=== PATIENT | male | born 1970 | race Caucasian/White ===

== ENCOUNTER 2019-04-25 10:33 | Emergency (ER) | payer MEDICAID ==
[2019-04-25 11:04] VITALS: O2SAT 97
[2019-04-25] MEDS ORDERED: DILAUDID 2 MG INJECTION IM ONE (11:05)
[2019-04-25] MEDS ORDERED: DECADRON 10MG INJ. IM ONE (11:05)
[2019-04-25] MEDS ORDERED: Hydromorphone 1 mg/ml Ampule ONE ×2 (11:09→11:12)
[2019-04-25] MEDS ORDERED: DECADRON 10MG INJ. ONE (11:09)
--- NOTE | 2019-04-25 11:14 | ERPHSYRPT ---
- History of Present Illness Time Seen by Provider: 04/25/19 11:00 Source: patient Exam Limitations: no limitations Patient Subjective Stated Complaint: co right lower back for 3 days after standing on ladder for 3 days putting window in, pain shoots down leg.no difficultly with b/b/ Triage Nursing Assessment: pt walked in, alert, unalbe to lay in bed, restless, no bruising or abrasion noted Physician History: Patient has had increasing pain over the past three days of his usual low back pain. It is radiating down the posterior right leg just pain his knee. Timing/Duration: day(s) (3) Method of Injury: other (standing on a ladder putting windows in over the previous 3 days) Quality: dull, radiating, aching Back Pain Location: lumbar spine Back Pain Radiation: lower legs (only the posterior right lower leg) Severity of Pain-Max: severe Severity of Pain-Current: severe Modifying Factors: Improves With: movement (worsened), pain medication (some relief with Meloxicam and Aleve, but mininal relief), rest (standing upright helps, laying flat worsens) Associated Symptoms: lower back pain, No fever, No chills, No sweating, No urinary incontinence, No loss of bowel control, No constipation, No nausea, No vomiting, No problems urinating, No light-headedness, No dizziness, No numbness in legs/feet, No weakness, No sensory/motor loss, No tingling in legs/feet, No muscle spasms Previous symptoms: same symptoms as today, no recent treatment (no history of epidural injections) Allergies/Adverse Reactions: No Known Drug Allergies Allergy (Unverified 04/25/19 10:59) Home Medications: Carvedilol 12.5 mg [Coreg 12.5 mg] 12.5 mg DAILY 04/25/19 [History] Hx Influenza Vaccination/Date Given: No Hx Pneumococcal Vaccination/Date Given: No Immunizations Up to Date: Yes - Review of Systems Constitutional: No Fever, No Chills Eyes: No Symptoms, No Eye Pain, No Vision Changes Ears, Nose, & Throat: No Symptoms, No Throat Pain, No Throat Swelling, No Hoarse Respiratory: No Cough, No Dyspnea Cardiac: No Chest Pain, No Edema, No Syncope Abdominal/Gastrointestinal: No Abdominal Pain, No Nausea, No Vomiting, No Diarrhea, No Hematemesis, No Hematochezia, No Melena Genitourinary Symptoms: No Dysuria, No Hematuria, No Flank Pain Musculoskeletal: Back Pain, No Arthralgias, No Neck Pain Skin: No Rash Neurological: No Dizziness, No Focal Weakness, No Sensory Changes Psychological: No Symptoms Endocrine: No Symptoms Hematologic/Lymphatic: No Easy Bleeding, No Easy Bruising All Other Systems: Reviewed and Negative - Past Medical History Pertinent Past Medical History: Yes ENT History: Glaucoma Cardiac History: High Cholesterol, Hypertension - Past Surgical History Past Surgical History: Yes Musculoskeletal: Orthopedic Surgery Other Surgical History: bilt legs - Social History Smoking Status: Never smoker Exposure to second hand smoke: No Drug Use: marijuana Patient Lives Alone: No - Nursing Vital Signs Nursing Vital Signs: Initial Vital Signs Temperature 98.0 F 04/25/19 10:53 Pulse Rate 87 04/25/19 10:53 Respiratory Rate 16 04/25/19 10:53 Blood Pressure 164/103 04/25/19 10:53 O2 Sat by Pulse Oximetry 97 04/25/19 10:53 Pain Scale Pain Intensity [Back] 10 Pain Intensity 2 - Physical Exam General Appearance: no apparent distress, alert Eye Exam: PERRL/EOMI, eyes nml inspection Ears, Nose, Throat Exam: pharynx normal, moist mucous membranes Neck Exam: normal inspection, non-tender, supple, full range of motion, No meningismus, No Brudzinski, No midline tenderness Respiratory Exam: normal breath sounds, lungs clear, airway intact, No respiratory distress, No accessory muscle use, No crackles/rales, No rhonchi, No wheezing, No stridor Cardiovascular Exam: regular rate/rhythm, normal heart sounds, normal peripheral pulses, capillary refill <2 sec Gastrointestinal Exam: soft, No tenderness, No mass Back Exam: normal inspection, decreased range of motion, No CVA tenderness, No vertebral tenderness, No point tenderness Extremity Exam: normal inspection, normal range of motion, pelvis stable, No calf tenderness, No pedal edema Peripheral Pulses: dorsalis-pedis (R): 2+, dorsalis-pedis (L): 2+ Neurologic Exam: alert, oriented x 3, cooperative, 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 IM 04/25/19 11:06 10 mg STAT ONE Administration Dexamethasone Sodium Phosphate Confirm 04/25/19 11:09 Decadron 10mg Inj. Administered 04/25/19 11:10 Dose 10 mg .ROUTE .STK-MED ONE Hydromorphone HCl 2 mg 04/25/19 11:05 04/25/19 11:15 Dilaudid 2 Mg Injection IM 04/25/19 11:06 2 mg ONCE ONE Administration Hydromorphone HCl Confirm 04/25/19 11:09 Hydromorphone 1 Mg/Ml Ampule Administered 04/25/19 11:10 Dose 2 mg .ROUTE .STK-MED ONE Hydromorphone HCl Confirm 04/25/19 11:12 Hydromorphone 1 Mg/Ml Ampule Administered 04/25/19 11:13 Dose 1 mg .ROUTE .STK-MED ONE - Progress Progress: improved, re-examined Progress Note: 04/25/19 11:2 Patient's pain has improved significantly after intramuscular Decadron and Dilaudid given and his pain decreased from a 10/10 to a 2/10. Patient has no neurologic deficits on repeat examination or any concerning symptoms on repeat evaluation that require any further imaging, specialist immediate evaluation or inpatient admission. Counseled pt/family regarding: diagnosis, need for follow-up - Departure Departure Disposition: Home Clinical Impression: Sciatica of right side Acute low back pain with right-sided sciatica Qualifiers: Back pain laterality: right Qualified Code(s): M54.41 - Lumbago with sciatica, right side Hypertension Qualifiers: Hypertension type: essential hypertension Qualified Code(s): I10 - Essential ( primary) hypertension Condition: Good Critical Care Time: No Referrals: DOCTOR,NO FAMILY [Primary Care Provider] - JACEK LANDAVERDE [ACTIVE STAFF] - Follow Up with PCP/3 days Instructions: Low Back Pain (DC), Sciatica (DC) Additional Instructions: Return immediately back to the Emergency Department if any worsening pain, any new fevers, new bilateral radiating symptoms, new numbness to the area you sit upon, any difficulty urinating or having bowel movements or diarrhea you cannot control, or any other concerning signs or symptoms that were not present on today's emergency room visit for immediate reevaluation in the emergency department. Prescriptions: Methylprednisolone Packet [Medrol Dosepack] 4 mg PO UD #1 packet
[2019-04-25 11:58] VITALS: BP 119/95; PULSE 79
== END 2019-04-25 11:53 | disposition home or self-care (01) ==
LOC: ED 10:33
DX: M54.41 Lumbago with sciatica, right side (principal); I10 Essential (primary) hypertension
CPT/HCPCS: 96372; 99284; J1100; J1170